=== PATIENT | female | born 2005 | race American Indian/Alaskan Native ===

== ENCOUNTER 2024-09-01 04:33 | Emergency (ER) | payer MEDICAID, SELFPAY ==
[2024-09-01 04:34] VITALS: BMI 37.5
[2024-09-01 04:45] VITALS: BP 136/80; PULSE 84; RESP 18; TEMP 36.9; O2SAT 98
--- NOTE | 2024-09-01 04:51 | PD.EDSKIN ---
ED Skin Abcess FB-RME/HPI General Chief complaint: Skin/Abscess/Foreign Body Stated complaint: POSSIBLE SPIDER BITE TO LEFT HIP Time Seen by Provider: 09/01/24 04:37 Arrival date/time: 09/01/24 04:33 18 year old female present to emergency room with c/o of possible spider bite to left hip/flank region on wednesday. unsure of status of tetanus LOCATION: hip/abd SEVERITY: Symptoms are described as being severe with limitations on activities of daily living QUALITY: Symptoms are described as being dull or achy CONTEXT: The patient is unable to identify any inciting events. DURATION/TIMING: The symptoms started approximately 5 day ago and have been constant this then, and have been progressive getting worse. ASSOCIATED SYMPTOMS: The patient is unable to identify any other associated symptoms. MODIFYING FACTORS: The patient is unable to identify any alleviating or aggravating symptoms. PERTINENT ROS: denies IVDU, states no immunocompromising condition, denies any penetrating trauma, no fever, no unexplained nausea or vomiting, no headache, no chest pain REVIEW OF SYSTEMS: See History of Present Illness - with the exception of those mentioned in the history of present illness, all other systems reviewed and reported as negative GENERAL: In general the patient is awake, interactive, in an emergency department gurney. HEAD/EYES/EARS/NOSE/THROAT: normo-cephalic, atraumatic, mucus membranes are moist, anicteric, palpebral conjunctiva is pink, trachea is midline. CARDIOVASCULAR: regular rate and regular rhythm, no murmurs, heart sounds are not distant, strong pulses in all four extremities that are equal and symmetric bilateral upper and lower extremities, normal capillary refill. ABDOMEN: + left flank erythema 3x3 abscess, no red streaking tenderness noted. soft, not tender, no masses appreciated BACK: normal range of motion without pain. SKIN: warm, dry, well-perfused, no jaundice, no rash, no telangiectasias or petechia. PSYCH: calm, cooperative, no evidence of psychosis or agitation Related Data Previous Rx's ?Medication ?Instructions ?Recorded clindamycin HCl 150 mg capsule 450 mg (3 x 150 mg) PO Q8H 10 days 09/01/24 (Cleocin HCl) #90 caps Allergies Allergy/AdvReac Type Severity Reaction Status Date / Time No Known Allergies Allergy Unknown Uncoded 07/18/08 13:54 Course Course Course Narrative: Patient is admitted to the Emergency Department and evaluated. Patient appears well, is non-toxic and well hydrated. Pt appears to have an early abscess that is indurated. Pt is given instructions to use warm compresses. Will initiate outpatient abx. Instructed to return in 2 days for recheck. area marked Patient is admitted to the Emergency Department and evaluated. Patient appears well, is non-toxic and well hydrated. No signs of cellulitis, lymphangitis, or systemic infection. I&D performed without complication. Instructed to return in 2 days for recheck. Quality Measures none Orders Category Date Time Status Miscellaneous Nursing Order X1 Care 09/01/24 04:51 Active Clindamycin [Cleocin] Med 09/01/24 04:51 Discontinued 450 mg PO X1 ONE Vital Signs Vital signs: Vital Signs Temperature 98.4 F 09/01/24 04:45 Pulse Rate 84 09/01/24 04:45 Respiratory Rate 18 09/01/24 04:45 Blood Pressure 136/80 H 09/01/24 04:45 Pulse Oximetry (%) 98 09/01/24 04:45 Oxygen Delivery Method Room Air 09/01/24 04:45 Skin / Abscess / Foreign Body Patient data External records reviewed:: None Clinical information provided by:: patient Social determinants that could affect healthcare access:: none Patient has the following chronic illnesses:: none How is presenting disease/condition affected by chronic disease/condition?: no chronic disease Evaluation data The following diagnostics were reviewed and interpreted by me:: other (specify) (none ) Lab and/or radiology exams considered but not ordered:: none Interpretation Summary: none Medications / Prescriptions Medications or Prescriptions considered but not ordered:: none Medication administrations:: Medication Administration History Discontinued Medications Clindamycin HCl (Clindamycin 150 Mg Capsule) 450 mg PO X1 ONE Stop: 09/01/24 04:52 none Consultations Consultation(s) initiated? (list below): No Diagnosis Skin/Abscess Differential Diagnosis: abscess of skin or subcutaneous tissue, cellulitis and insect bites Most likely diagnosis given after review of the tests above:: appendicitis Admission Indicated Admission indicated?: not indicated Admission Request Was there a request for admission?: No Disposition Plan Disposition Plan: Discharge Discharge Attestation Discharge Attestation: The patient and all family members were given an opportunity to ask questions and understood the discharge instructions. Discharge instructions specifically effects, indications for sooner follow up or return to the emergency department, and the expected course of current diagnosis. Patient condition: Stable Discharge Plan Plan Patient Disposition: HOME (Self Care) Health Concerns: Follow with PMD as directed Take tylenol or motrin as need Return to ED if sx worsen Prescriptions/Referrals Prescriptions/Med Rec: New clindamycin HCl [Cleocin HCl] 150 mg capsule 450 mg PO Q8H 10 Days Qty: 90 0RF Problem List Clinical Impression: Abscess of skin or subcutaneous tissue Patient/Caregiver Discharge Instructions Education Materials: ED Abscess Antibiotic ... Print Language: Maori Stand Alone Forms: Maira Award Info., Patient Portal Info Letter
[2024-09-01] MEDS: CLINDAMYCIN 150 MG CAPSULE 450 MG PO (05:40)
[2024-09-01] MEDS: TETANUS,DIPHTHERIA TOXOIDS/PF (ADULT) 0.5 ML SYRINGE IMi (05:41)
== END 2024-09-01 05:50 | disposition home or self-care (01) ==
PROVIDERS: Emergency Provider Emergency Medicine; PCP Nurse Practitioner Family
DX: L02.416 Cutaneous abscess of left lower limb (principal); Z23 Encounter for immunization
CPT/HCPCS: 90471; 90714; 99283; A9270